=== PATIENT | female | born 1990 | race Caucasian/White ===

== ENCOUNTER → 2016-11-25 | Outpatient (CLI) | payer BC ==
[~2016-11-25] MED LIST: CELEXA 20MG20 MG/TAB PO; TRINESSA 281 TAB
== END ==
LOC: COL.LAB 17:24
PROVIDERS: Nurse Practitioner Family
DX: Z02.1 Encounter for pre-employment examination (principal)

== ENCOUNTER 2018-06-29 09:00 | Emergency (ER) | payer BC ==
[~2018-06-29] VITALS: Ht 160 cm; Wt 62.3 kg
[2018-06-29 09:10] VITALS: TEMP 97.5
[2018-06-29] MEDS ORDERED: LEXAPRO 5MG5 MG PO (09:37)
[2018-06-29] MEDS ORDERED: HORIZANT300 MG PO (09:41)
[2018-06-29] MEDS ORDERED: ALLEGRA 180MG180 MG PO (09:42)
[2018-06-29] MEDS ORDERED: MAG-OX 400400 MG/TAB PO (09:42)
[2018-06-29] MEDS ORDERED: BUSPAR10 MG PO (09:42)
[2018-06-29] MEDS ORDERED: ANTIVERT 12.512.5 MG PO (10:17)
[2018-06-29 10:56] VITALS: BP 107/75; PULSE 63
== END 2018-06-29 10:34 | disposition home or self-care (01) ==
LOC: COL.ER 09:00
DX: R51 Headache (principal)

== ENCOUNTER 2020-10-15 12:16 | Emergency (ER) | payer BC ==
[~2020-10-15] VITALS: Ht 160 cm; Wt 72.7 kg
[~2020-10-15 12:16] MED LIST changes: +ALLEGRA 180MG180 MG PO; +ANTIVERT 12.512.5 MG PO; +BUSPAR10 MG PO; +HORIZANT300 MG PO; +LEXAPRO20 MG PO; +MAG-OX 400400 MG/TAB PO
[2020-10-15 12:38] VITALS: TEMP 97.5
[2020-10-15] MEDS ORDERED: MIRAPEX0.5 MG PO (12:50)
[2020-10-15] MEDS ORDERED: KLONOPIN 0.5MG0.5 MG PO (12:50)
[2020-10-15] MEDS ORDERED: MINIPRESS 1M1 MG/CAP PO (12:51)
[2020-10-15] MEDS ORDERED: DESYREL 50MG50 MG PO (12:51)
[2020-10-15] MEDS ORDERED: SINGULAIR 110 MG/TAB PO (12:51)
[2020-10-15] MEDS ORDERED: NORGESTIMATE AN1 TAB PO (12:53)
[2020-10-15 17:40] VITALS: BP 103/67; PULSE 75
== END 2020-10-15 17:48 | disposition home or self-care (01) ==
LOC: COL.ER 12:16
DX: R51.9 Headache, unspecified (principal); N20.1 Calculus of ureter
CPT/HCPCS: J0780; J1885; J2550; J7030